=== PATIENT | female | born 1980 | race Two or more races ===

== ENCOUNTER 2017-11-17 02:03 | Emergency (ER) | payer MEDICAID ==
[~2017-11-17] VITALS: Ht 154.9 cm; Wt 79.1 kg
[2017-11-17 02:32] LABS: HCG UR SG 1.033 (1.003-1.030)
[2017-11-17 02:33] LABS: CULTURE INDICATED? YES; MICROSCOPIC INDICATED
[2017-11-17] MEDS ORDERED: KETOROLAC 30 MG/1 ML ONE (03:55)
[2017-11-17] MEDS ORDERED: KETOROLAC 30 MG/1 ML IM ONE (04:00)
[2017-11-17 04:14] LABS: BASOPHILS # (AUTO) 0.07 x10^3/uL (0-0.1); BASOPHILS % (AUTO) 1 % (0-1); EOSINOPHILS # (AUTO) 0.44 x10^3/uL (0-0.4); EOSINOPHILS % (AUTO) 5 % (1-7); LYMPHOCYTES # (AUTO) 3.21 x10^3/uL (1-3.4); LYMPHOCYTES % (AUTO) 35 % (22-44); MD NO; MEAN CORPUSCULAR VOLUME 88.3 fL (80-100); MEAN PLATELET VOLUME 8.2 fL (7.4-10.4); MONOCYTES # (AUTO) 0.45 x10^3/uL (0.2-0.8); MONOCYTES % (AUTO) 5 % (2-9); NEUTROPHILS % (AUTO) 55 % (42-75); PLATELET COUNT 271 x10^3/uL (130-400); RED BLOOD COUNT 4.97 x10^6/uL (3.82-5.3); RED CELL DISTRIBUTION WIDTH 13.5 % (9.6-15.2)
[2017-11-17 04:26] LABS: ALBUMIN 3.5 g/dL (3.4-5.0); ANION GAP 5 mmol/L (5-15); CALCIUM 8.8 mg/dL (8.5-10.1); CHLORIDE 110 mmol/L (98-107)
[2017-11-17 04:32] LABS: ALANINE AMINOTRANSFERASE 36 U/L (12-78); ALKALINE PHOSPHATASE 62 U/L (45-117); BILIRUBIN,TOTAL 0.3 mg/dL (0.2-1.0); CREATININE 0.74 mg/dL (0.55-1.02); TOTAL PROTEIN 7.2 g/dL (6.4-8.2)
[2017-11-17 05:17] VITALS: BP 105/76
== END 2017-11-17 05:19 | disposition home or self-care (01) ==
LOC: ED 05:13
DX: N30.00 Acute cystitis without hematuria (principal); R73.9 Hyperglycemia, unspecified; I10 Essential (primary) hypertension
CPT/HCPCS: 36415; 80053; 81001; 81025; 83690; 84703; 85025; 87077; 87086; 96372; 99284; J1885; 87186